=== PATIENT | male | born 1945 | race Caucasian/White ===

== ENCOUNTER 2020-10-20 10:43 | Outpatient (REF) | payer MEDICARE, SELFPAY ==
[2020-10-20 10:49] LABS: MANUAL DIFF FLAG NO
[2020-10-20 11:03] LABS: Eosinophils Percent Auto 0.5 % (0-4); Hematocrit 41.4 % (42-52); Hemoglobin 13.6 g/dl (14.0-18.0); Imm Gran Abs Auto 0.02 X10*3/uL (0.00-0.03); Imm Gran Pct Auto 0.5 % (0.0-0.4); Lymphocytes Absolute Auto 1.8 X10*3/uL (1.2-4.9); Lymphocytes Percent Auto 46.7 % (20-40); Mean Corpuscular HGB Conc 32.9 g/dl (31.0-36.0); Mean Corpuscular Hemoglobin 33.7 pg (27.0-33.0); Mean Corpuscular Volume 102.7 fL (80-98); Mean Platelet Volume 10.3 fL (9.4-12.4); Monocytes Absolute Auto 0.3 X10*3/uL (0.1-1.2); Monocytes Percent Auto 8.5 % (2-11); Neutrophils Absolute Auto 1.7 X10*3/uL (2.0-8.3); Neutrophils Percent Auto 43.8 % (45-73); Red Blood Count 4.03 X10*6/uL (4.60-5.80); Red Cell Distribution Width 12.6 % (11.0-16.0); White Blood Count 3.9 X10*3/uL (4.8-10.8)
[2020-10-20 11:08] LABS: Platelet Count 76 X10*3/uL (160-400)
[2020-10-20 11:20] LABS: Alanine Aminotransferase 21 U/L (0-40); Albumin Level 4.3 g/dL (3.5-5.0); Alkaline Phosphatase 71 U/L (39-117); Anion Gap 11 (12-20); Aspartate Amino Transferase 26 U/L (5-37); Bilirubin Total 0.6 mg/dL (0.0-1.0); Blood Urea Nitrogen 13 mg/dL (9-16); Calcium 9.2 mg/dL (8.4-10.2); Carbon Dioxide 26 mmol/L (22-29); Chloride 108 mmol/L (96-108); Cholesterol 154 mg/dL; Estimated Glomerular Filt Rate > 60; Glucose Fasting 98 mg/dL (60-99); HDL Cholesterol 55 mg/dL; LDL Cholesterol Calculated 89 mg/dl; Potassium 4.3 mmol/L (3.3-5.1); Sodium 141 mmol/L (135-145); Total Protein 6.7 g/dL (6.5-8.0); Triglycerides 54 mg/dL
[2020-10-20 11:33] LABS: Glucose Urine UA NEG (NEG); Leukocyte Esterase Urine NEG (NEG); Nitrite Urine NEG (NEG); PSA,Total (Free>4and<10) 3.84 ng/mL (0.00-4.00); Urine Blood NEG (NEG); Urine Ketones NEG (NEG); Urine Protein NEG (NEG-TRACE)
[2020-10-20 11:46] LABS: Appearance Urine CLEAR; Color Urine YELLOW
== END 2020-10-20 10:44 | disposition home or self-care (01) ==
LOC: HO.LNP 10:43
PROVIDERS: Visit Provider Internal Medicine
DX: N40.0 Benign prostatic hyperplasia without lower urinary tract symptoms (principal); D72.820 Lymphocytosis (symptomatic); D69.6 Thrombocytopenia, unspecified; R97.20 Elevated prostate specific antigen [PSA]
CPT/HCPCS: 80053; 80061; 81003; 84153; 85025

== ENCOUNTER 2021-05-07 14:30 | Outpatient (REF) | payer MEDICARE, SELFPAY ==
[2021-05-07 14:41] LABS: Appearance Urine HAZY; Color Urine YELLOW; Glucose Urine UA NEG (NEG); Leukocyte Esterase Urine NEG (NEG); Nitrite Urine NEG (NEG); PH 7.5 (5.0-8.0); Urine Blood NEG (NEG); Urine Ketones NEG (NEG); Urine Protein NEG (NEG-TRACE)
[2021-05-07 14:50] LABS: Amorphous Sediment Urine 4+ /LPF; RBC Urine 0-2 /HPF (0); Squamous Epithelial Cell Urine TRACE /LPF; WBC Urine 0 /HPF (0-4)
== END 2021-05-07 14:31 | disposition home or self-care (01) ==
LOC: HO.LNP 14:30
PROVIDERS: Visit Provider Internal Medicine
DX: R35.0 Frequency of micturition (principal)
CPT/HCPCS: 81001; 87086